=== PATIENT | male | born 1955 | race American Indian/Alaskan Native ===

== ENCOUNTER 2017-10-13 19:33 | Emergency (ER) | payer MEDICARE, OTHER ==
[2017-10-13 20:13] LABS: Hematocrit 40.3 % (35.5-45.6); Hemoglobin 13.3 gm/dl (11.8-15.2); Mean Corpuscular HGB Conc 33 % (32-34); Mean Corpuscular Hemoglobin 28 pg (28-32); Mean Corpuscular Volume 86 fl (84-94); Platelet Count 285 K/mm3 (140-440); Red Blood Count 4.71 M/mm3 (3.65-5.03); Red Cell Distribution Width 14.3 % (13.2-15.2)
[2017-10-13 20:16] LABS: INR 0.97 (0.87-1.13); Partial Thromboplastin Time 27.7 Sec. (24.2-36.6)
[2017-10-13 20:37] LABS: BUN/Creatinine Ratio 23; Blood Urea Nitrogen 21 mg/dL (9-20); Calcium 8.9 mg/dL (8.4-10.2); Hemolysis Index 11
[2017-10-13] MEDS ORDERED: AFRIN ONE (21:43)
[2017-10-13] MEDS ORDERED: AFRIN NS ONE (21:44)
--- NOTE | 2017-10-13 21:53 | Emergency Department Report ---
ED ENT HPI - General Chief complaint: Nosebleed Stated complaint: NOSE BLEED Time Seen by Provider: 10/13/17 21:44 Source: patient Mode of arrival: Ambulatory Limitations: No Limitations - History of Present Illness Initial comments: 62-year-old -Filipino male with a significant past medical history of hypertension, diabetes hypercholesterolemia and nasal surgery comes in today for complaint of nosebleed. Patient reports that the nose bleed started approximate 4:30 PM today. Patient denies any recent trauma to the nose but does report picking the nose. Patient reports that he often has nosebleed but this was told that he will continue to have nosebleed by his ear nose and throat doctor at [facility]. Patient reports that he had nasal surgery secondary to having a viral infection. Patient had a most of the nasal bone removed from the left nare. Patient denies any headache, dizziness, change in vision shortness of breath or chest pain. MD complaint: epistaxis -: This evening Time: 16:30 Location: nose Severity: severe Consistency: constant Improves with: none Worsens with: none Context-Epistaxis: recent surgery/procedure (proximally 8 years ago with nasal bone removal.), history of similar, other Associated Symptoms: denies: fever, cough, pain with swallowing, rhinorrhea - Related Data Home Medications Medication Instructions Recorded Confirmed Last Taken AtorvaSTATin [Lipitor] 80 mg PO QHS 04/24/15 04/24/15 04/23/15 Furosemide [Lasix] 20 mg PO QDAY 04/24/15 04/24/15 04/23/15 Insulin Aspart [NovoLOG Flexpen] 50 units SQ BID 04/24/15 04/24/15 04/23/15 Insulin Glargine,Hum.rec.anlog 45 units SQ QHS 04/24/15 04/24/15 04/23/15 [Lantus Solostar] Lisinopril [Zestril TAB] 40 mg PO QDAY 04/24/15 04/24/15 04/23/15 Magnesium Oxide 420 mg PO BID 04/24/15 04/24/15 04/23/15 Meclizine [Antivert] 12.5 mg PO DAILY 04/24/15 04/24/15 04/23/15 Metoprolol [Lopressor] 50 mg PO DAILY 04/24/15 04/24/15 04/23/15 Terazosin [Hytrin] 5 mg PO QHS 04/24/15 04/24/15 04/23/15 Allergies Allergy/AdvReac Type Severity Reaction Status Date / Time No Known Allergies Allergy Verified 10/13/17 21:45 ED Dental HPI - General Chief complaint: Nosebleed Stated complaint: NOSE BLEED Time Seen by Provider: 10/13/17 21:44 Source: patient Mode of arrival: Ambulatory Limitations: No Limitations - Related Data Home Medications Medication Instructions Recorded Confirmed Last Taken AtorvaSTATin [Lipitor] 80 mg PO QHS 04/24/15 04/24/15 04/23/15 Furosemide [Lasix] 20 mg PO QDAY 04/24/15 04/24/15 04/23/15 Insulin Aspart [NovoLOG Flexpen] 50 units SQ BID 04/24/15 04/24/15 04/23/15 Insulin Glargine,Hum.rec.anlog 45 units SQ QHS 04/24/15 04/24/15 04/23/15 [Lantus Solostar] Lisinopril [Zestril TAB] 40 mg PO QDAY 04/24/15 04/24/15 04/23/15 Magnesium Oxide 420 mg PO BID 04/24/15 04/24/15 04/23/15 Meclizine [Antivert] 12.5 mg PO DAILY 04/24/15 04/24/15 04/23/15 Metoprolol [Lopressor] 50 mg PO DAILY 04/24/15 04/24/15 04/23/15 Terazosin [Hytrin] 5 mg PO QHS 04/24/15 04/24/15 04/23/15 Allergies Allergy/AdvReac Type Severity Reaction Status Date / Time No Known Allergies Allergy Verified 10/13/17 21:45 ED Review of Systems ROS: Stated complaint: NOSE BLEED Other details as noted in HPI Comment: All other systems reviewed and negative ENT: epistaxis ED Past Medical Hx - Past Medical History Hx Hypertension: Yes Hx Diabetes: Yes Additional medical history: Vertigo - Surgical History Additional Surgical History: Facial surgery - Social History Smoking Status: Unknown if ever smoked Substance Use Type: None - Medications Home Medications: Home Medications Medication Instructions Recorded Confirmed Last Taken Type AtorvaSTATin [Lipitor] 80 mg PO QHS 04/24/15 04/24/15 04/23/15 History Furosemide [Lasix] 20 mg PO QDAY 04/24/15 04/24/15 04/23/15 History Insulin Aspart [NovoLOG Flexpen] 50 units SQ BID 04/24/15 04/24/15 04/23/15 History Insulin Glargine,Hum.rec.anlog 45 units SQ QHS 04/24/15 04/24/15 04/23/15 History [Lantus Solostar] Lisinopril [Zestril TAB] 40 mg PO QDAY 04/24/15 04/24/15 04/23/15 History Magnesium Oxide 420 mg PO BID 04/24/15 04/24/15 04/23/15 History Meclizine [Antivert] 12.5 mg PO DAILY 04/24/15 04/24/15 04/23/15 History Metoprolol [Lopressor] 50 mg PO DAILY 04/24/15 04/24/15 04/23/15 History Terazosin [Hytrin] 5 mg PO QHS 04/24/15 04/24/15 04/23/15 History ED Physical Exam - General Limitations: No Limitations - Head Head exam: Present: atraumatic, normocephalic - ENT ENT exam: Present: mucous membranes moist - Expanded ENT Exam Expanded Ear exam: Present: other (left knee are no turbinates removal of nasal bone to the left near. Active bleeding with oozing of blood tender to palpate is some deformity from prior surgery.) - Neck Neck exam: Present: normal inspection ED Course Vital Signs 10/13/17 19:44 Temperature 97.8 F Pulse Rate 62 Respiratory 18 Rate Blood Pressure 187/86 O2 Sat by Pulse 99 Oximetry - Reevaluation(s) Reevaluation #1: 10/13/17 23:01 Patient's nasal rocket is saturated with blood no longer oozing. Reevaluation #2: 10/13/17 23:05 No posterior bleeding in the oropharynx. No active bleeding at this time. ED Medical Decision Making - Lab Data Result diagrams: 10/13/17 19:54 10/13/17 19:54 - Medical Decision Making Patient has been evaluated by this provider fast track. I asked the M.Mindy from [facility] to come and evaluate patient for nose bleed. Dr. De Los Santos was able to put a nasal rocket into left nare.. Critical care attestation.: If time is entered above; I have spent that time in minutes in the direct care of this critically ill patient, excluding procedure time. ED Disposition Clinical Impression: Epistaxis Disposition: DC-01 TO HOME OR SELFCARE Is pt being admited?: No Does the pt Need Aspirin: No Condition: Stable Instructions: Epistaxis (ED) Additional Instructions: Please follow up in 24 hours to have nasal rocket removed. Please make an appointment to be seen by otolaryngology/ear nose and throat provider in the next 3-5 days. Referrals: KARTIK JENNINGS MD [Staff Physician] - 3-5 Days SARAI DENT MD [Staff Physician] - 3-5 Days BRITTANY BASURTO MD [Staff Physician] - 3-5 Days LEAH DACOSTA MD [Staff Physician] - 3-5 Days Forms: Work/School Release Form(ED), Accompanied Note
[2017-10-13] MEDS ORDERED: TYLENOL ONE (23:19)
[2017-10-13] MEDS ORDERED: TYLENOL PO ONE (23:20)
[2017-10-13 23:38] VITALS: BP 174/94
== END 2017-10-13 23:30 | disposition home or self-care (01) ==
LOC: ED 19:33
DX: R04.0 Epistaxis (principal); I10 Essential (primary) hypertension; E11.9 Type 2 diabetes mellitus without complications; Z79.4 Long term (current) use of insulin
CPT/HCPCS: 36415; 80048; 85027; 85610; 85730; 99283

== ENCOUNTER 2017-10-14 12:48 | Emergency (ER) | payer MEDICARE, OTHER ==
[2017-10-14 13:41] VITALS: BP 166/67
--- NOTE | 2017-10-14 16:37 | Emergency Department Report ---
ED General Adult HPI - General Chief complaint: Medical Clearance Stated complaint: REMOVE PACKING Time Seen by Provider: 10/14/17 15:48 Source: patient Mode of arrival: Ambulatory Limitations: No Limitations - History of Present Illness Initial comments: Patient presents to emergency department for removal of Rhino Rocket. Patient was in the emergency department last night had a Rhino Rocket placed. Patient is concerned that he still has bleeding and would like to have the Rhino Rocket change - Related Data Home Medications Medication Instructions Recorded Confirmed Last Taken AtorvaSTATin [Lipitor] 80 mg PO QHS 04/24/15 04/24/15 04/23/15 Furosemide [Lasix] 20 mg PO QDAY 04/24/15 04/24/15 04/23/15 Insulin Aspart [NovoLOG Flexpen] 50 units SQ BID 04/24/15 04/24/15 04/23/15 Insulin Glargine,Hum.rec.anlog 45 units SQ QHS 04/24/15 04/24/15 04/23/15 [Lantus Solostar] Lisinopril [Zestril TAB] 40 mg PO QDAY 04/24/15 04/24/15 04/23/15 Magnesium Oxide 420 mg PO BID 04/24/15 04/24/15 04/23/15 Meclizine [Antivert] 12.5 mg PO DAILY 04/24/15 04/24/15 04/23/15 Metoprolol [Lopressor] 50 mg PO DAILY 04/24/15 04/24/15 04/23/15 Terazosin [Hytrin] 5 mg PO QHS 04/24/15 04/24/15 04/23/15 Previous Rx's Medication Instructions Recorded Last Taken Type Cephalexin [Keflex] 250 mg PO Q6HR #20 capsule 10/14/17 Unknown Rx Allergies Allergy/AdvReac Type Severity Reaction Status Date / Time No Known Allergies Allergy Verified 10/14/17 13:37 ED Review of Systems ROS: Stated complaint: REMOVE PACKING Other details as noted in HPI Constitutional: denies: chills, fever Eyes: denies: eye pain, eye discharge, vision change ENT: epistaxis. denies: ear pain, throat pain Respiratory: denies: cough, shortness of breath, wheezing Cardiovascular: denies: chest pain, palpitations Endocrine: no symptoms reported Gastrointestinal: denies: abdominal pain, nausea, diarrhea Genitourinary: denies: urgency, dysuria Musculoskeletal: denies: back pain, joint swelling, arthralgia Skin: denies: rash, lesions Neurological: denies: headache, weakness, paresthesias Psychiatric: denies: anxiety, depression Hematological/Lymphatic: denies: easy bleeding, easy bruising ED Past Medical Hx - Past Medical History Hx Hypertension: Yes Hx Diabetes: Yes Additional medical history: Vertigo - Surgical History Additional Surgical History: Facial surgery - Social History Smoking Status: Current Every Day Smoker Substance Use Type: None - Medications Home Medications: Home Medications Medication Instructions Recorded Confirmed Last Taken Type AtorvaSTATin [Lipitor] 80 mg PO QHS 04/24/15 04/24/15 04/23/15 History Furosemide [Lasix] 20 mg PO QDAY 04/24/15 04/24/15 04/23/15 History Insulin Aspart [NovoLOG Flexpen] 50 units SQ BID 04/24/15 04/24/15 04/23/15 History Insulin Glargine,Hum.rec.anlog 45 units SQ QHS 04/24/15 04/24/15 04/23/15 History [Lantus Solostar] Lisinopril [Zestril TAB] 40 mg PO QDAY 04/24/15 04/24/15 04/23/15 History Magnesium Oxide 420 mg PO BID 04/24/15 04/24/15 04/23/15 History Meclizine [Antivert] 12.5 mg PO DAILY 04/24/15 04/24/15 04/23/15 History Metoprolol [Lopressor] 50 mg PO DAILY 04/24/15 04/24/15 04/23/15 History Terazosin [Hytrin] 5 mg PO QHS 04/24/15 04/24/15 04/23/15 History Cephalexin [Keflex] 250 mg PO Q6HR #20 capsule 10/14/17 Unknown Rx ED Physical Exam - General Limitations: No Limitations General appearance: alert, in no apparent distress - Head Head exam: Present: atraumatic, normocephalic - Eye Eye exam: Present: normal appearance - ENT ENT exam: Present: mucous membranes moist, other (mild anterior nasal bleed) - Neck Neck exam: Present: normal inspection - Respiratory Respiratory exam: Present: normal lung sounds bilaterally. Absent: respiratory distress - Cardiovascular Cardiovascular Exam: Present: regular rate, normal rhythm. Absent: systolic murmur, diastolic murmur, rubs, gallop - GI/Abdominal GI/Abdominal exam: Present: soft, normal bowel sounds - Rectal Rectal exam: Present: deferred - Extremities Exam Extremities exam: Present: normal inspection - Back Exam Back exam: Present: normal inspection - Neurological Exam Neurological exam: Present: alert, oriented X3 - Psychiatric Psychiatric exam: Present: normal affect, normal mood - Skin Skin exam: Present: warm, dry, intact, normal color. Absent: rash ED Course Vital Signs 10/14/17 13:38 Temperature 98.7 F Pulse Rate 47 L Respiratory 18 Rate Blood Pressure 166/67 O2 Sat by Pulse 98 Oximetry ED Medical Decision Making - Medical Decision Making Procedure note Rhino Rocket was placed into the left nasal nare without any complications. Patient tolerated the procedure well patient also gave consent for procedure. Tolerated procedure well Patient will follow with ENT Critical care attestation.: If time is entered above; I have spent that time in minutes in the direct care of this critically ill patient, excluding procedure time. ED Disposition Clinical Impression: Epistaxis Disposition: DC-01 TO HOME OR SELFCARE Is pt being admited?: No Does the pt Need Aspirin: No Condition: Stable Instructions: Epistaxis (ED) Additional Instructions: Return if symptoms become worse Prescriptions: Cephalexin [Keflex] 250 mg PO Q6HR #20 capsule Referrals: PRIMARY CARE, [Primary Care Provider] - 3-5 Days BRITTANY BASURTO MD [Staff Physician] - 3-5 Days Time of Disposition: 16:34
== END 2017-10-14 16:40 | disposition home or self-care (01) ==
LOC: ED 12:48
DX: Z46.89 Encounter for fitting and adjustment of other specified devices (principal); R04.0 Epistaxis; E11.9 Type 2 diabetes mellitus without complications; I10 Essential (primary) hypertension; F17.200 Nicotine dependence, unspecified, uncomplicated; Z79.899 Other long term (current) drug therapy
CPT/HCPCS: 99282

== ENCOUNTER 2018-06-27 03:46 | Emergency (ER) | payer MEDICARE ==
[2018-06-27 04:22] LABS: Basophils # (Auto) 0.1 K/mm3 (0.0-0.1); Basophils % (Auto) 0.9 % (0.0-1.8); Eosinophils # (Auto) 0.2 K/mm3 (0.0-0.4); Hematocrit 39.8 % (35.5-45.6); Hemoglobin 13.3 gm/dl (11.8-15.2); Lymphocytes # (Auto) 3.2 K/mm3 (1.2-5.4); Lymphocytes % (Auto) 39.9 % (13.4-35.0); Mean Corpuscular HGB Conc 33 % (32-34); Mean Corpuscular Volume 85 fl (84-94); Monocytes # (Auto) 0.5 K/mm3 (0.0-0.8); Platelet Count 311 K/mm3 (140-440); Red Blood Count 4.71 M/mm3 (3.65-5.03); Red Cell Distribution Width 13.7 % (13.2-15.2)
[2018-06-27 04:33] LABS: BUN/Creatinine Ratio 17; Blood Urea Nitrogen 15 mg/dL (9-20); Calcium 9.4 mg/dL (8.4-10.2); Hemolysis Index 5; INR 0.98 (0.87-1.13)
[2018-06-27] MEDS ORDERED: VICKS SINEX ONE ×2 (04:36→05:31)
--- NOTE | 2018-06-27 04:38 | Emergency Department Report ---
ED ENT HPI - General Chief complaint: Nosebleed Stated complaint: NOSE BLEED Time Seen by Provider: 06/27/18 04:33 Source: patient Mode of arrival: Ambulatory Limitations: No Limitations - History of Present Illness Initial comments: 60 male presents to ED with nosebleed. Patient has been having intermittent bleeding from left nostril 6 days. States bleeding worsened tonight, used Afrin prior to ED arrival. complaint: epistaxis -: days(s) (6) Location: nose Severity: moderate Consistency: intermittent Improves with: pressure Worsens with: none Context-Epistaxis: history of similar Associated Symptoms: denies: fever - Related Data Home Medications Medication Instructions Recorded Confirmed Last Taken Lisinopril [Zestril TAB] 40 mg PO QDAY 04/24/15 03/31/18 04/23/15 Meclizine [Antivert] 12.5 mg PO BID 04/24/15 03/31/18 04/23/15 Aspirin [Adult Aspirin] 81 mg PO DAILY 03/31/18 03/31/18 Unknown Furosemide [Lasix] 80 mg PO QDAY 03/31/18 03/31/18 Unknown Gabapentin [Neurontin] 100 mg PO TID 03/31/18 03/31/18 Unknown Insulin Detemir [Levemir Flextouch] 50 units SUB-Q DAILY 03/31/18 03/31/18 Unknown Metoprolol [Lopressor TAB] 50 mg PO BID 03/31/18 03/31/18 Unknown Terazosin HCl 20 mg PO QDAY 03/31/18 03/31/18 Unknown Previous Rx's Medication Instructions Recorded Last Taken Type Famotidine [Pepcid] 20 mg PO BID #30 tablet 04/03/18 Unknown Rx Potassium Chloride 20 meq PO DAILY #30 tablet.er 04/03/18 Unknown Rx hydrALAZINE [Apresoline TAB] 25 mg PO Q8HR #90 tablet 04/03/18 Unknown Rx Amoxicillin/K Clav Tab [Augmentin 1 tab PO Q12HR #10 tab 06/27/18 Unknown Rx 875 mg] Allergies Allergy/AdvReac Type Severity Reaction Status Date / Time No Known Allergies Allergy Verified 03/31/18 09:40 ED Dental HPI - General Chief complaint: Nosebleed Stated complaint: NOSE BLEED Time Seen by Provider: 06/27/18 04:33 Source: patient Mode of arrival: Ambulatory Limitations: No Limitations - Related Data Home Medications Medication Instructions Recorded Confirmed Last Taken Lisinopril [Zestril TAB] 40 mg PO QDAY 04/24/15 03/31/18 04/23/15 Meclizine [Antivert] 12.5 mg PO BID 04/24/15 03/31/18 04/23/15 Aspirin [Adult Aspirin] 81 mg PO DAILY 03/31/18 03/31/18 Unknown Furosemide [Lasix] 80 mg PO QDAY 03/31/18 03/31/18 Unknown Gabapentin [Neurontin] 100 mg PO TID 03/31/18 03/31/18 Unknown Insulin Detemir [Levemir Flextouch] 50 units SUB-Q DAILY 03/31/18 03/31/18 Unknown Metoprolol [Lopressor TAB] 50 mg PO BID 03/31/18 03/31/18 Unknown Terazosin HCl 20 mg PO QDAY 03/31/18 03/31/18 Unknown Previous Rx's Medication Instructions Recorded Last Taken Type Famotidine [Pepcid] 20 mg PO BID #30 tablet 04/03/18 Unknown Rx Potassium Chloride 20 meq PO DAILY #30 tablet.er 04/03/18 Unknown Rx hydrALAZINE [Apresoline TAB] 25 mg PO Q8HR #90 tablet 04/03/18 Unknown Rx Amoxicillin/K Clav Tab [Augmentin 1 tab PO Q12HR #10 tab 06/27/18 Unknown Rx 875 mg] Allergies Allergy/AdvReac Type Severity Reaction Status Date / Time No Known Allergies Allergy Verified 03/31/18 09:40 ED Review of Systems ROS: Stated complaint: NOSE BLEED Other details as noted in HPI Comment: All other systems reviewed and negative ENT: epistaxis ED Past Medical Hx - Past Medical History Hx Hypertension: Yes Hx Congestive Heart Failure: No Hx Diabetes: Yes Hx Arthritis: Yes Hx Asthma: Yes Hx COPD: No Hx HIV: No Additional medical history: Vertigo, Heart Disease - Surgical History Additional Surgical History: Facial surgery I believe for mucormycosis infection - Social History Smoking Status: Former Smoker Substance Use Type: None - Medications Home Medications: Home Medications Medication Instructions Recorded Confirmed Last Taken Type Lisinopril [Zestril TAB] 40 mg PO QDAY 04/24/15 03/31/18 04/23/15 History Meclizine [Antivert] 12.5 mg PO BID 04/24/15 03/31/18 04/23/15 History Aspirin [Adult Aspirin] 81 mg PO DAILY 03/31/18 03/31/18 Unknown History Furosemide [Lasix] 80 mg PO QDAY 03/31/18 03/31/18 Unknown History Gabapentin [Neurontin] 100 mg PO TID 03/31/18 03/31/18 Unknown History Insulin Detemir [Levemir Flextouch] 50 units SUB-Q DAILY 03/31/18 03/31/18 Unknown History Metoprolol [Lopressor TAB] 50 mg PO BID 03/31/18 03/31/18 Unknown History Terazosin HCl 20 mg PO QDAY 03/31/18 03/31/18 Unknown History Famotidine [Pepcid] 20 mg PO BID #30 tablet 04/03/18 Unknown Rx Potassium Chloride 20 meq PO DAILY #30 tablet.er 04/03/18 Unknown Rx hydrALAZINE [Apresoline TAB] 25 mg PO Q8HR #90 tablet 04/03/18 Unknown Rx Amoxicillin/K Clav Tab [Augmentin 1 tab PO Q12HR #10 tab 06/27/18 Unknown Rx 875 mg] ED Physical Exam - General Limitations: No Limitations General appearance: alert, in no apparent distress - Head Head exam: Present: atraumatic, normocephalic - Eye Eye exam: Present: normal appearance - ENT ENT exam: Present: other (deformity of left nare due to partial resection of it; minimal active bleeding fro left nare) - Neck Neck exam: Present: normal inspection - Respiratory Respiratory exam: Present: normal lung sounds bilaterally. Absent: respiratory distress - Cardiovascular Cardiovascular Exam: Present: normal rhythm, bradycardia - GI/Abdominal GI/Abdominal exam: Present: soft. Absent: distended - Extremities Exam Extremities exam: Present: normal inspection - Neurological Exam Neurological exam: Present: alert, oriented X3 - Psychiatric Psychiatric exam: Present: normal affect, normal mood - Skin Skin exam: Present: warm, dry, intact, normal color. Absent: rash ED Course Vital Signs 06/27/18 03:52 Temperature 98.1 F Pulse Rate 48 L Respiratory 20 Rate Blood Pressure 190/75 O2 Sat by Pulse 97 Oximetry ED Medical Decision Making - Lab Data Result diagrams: 06/27/18 04:01 06/27/18 04:01 - Medical Decision Making Rhinorocket placed in left nare. No complications. Bleeding controlled. Patient advised to f/u with ENT. Will d/c w/ rx for augmentin. - Differential Diagnosis epistaxis Critical care attestation.: If time is entered above; I have spent that time in minutes in the direct care of this critically ill patient, excluding procedure time. ED Disposition Clinical Impression: Epistaxis Disposition: - TO HOME OR SELFCARE Is pt being admited?: No Condition: Stable Instructions: Epistaxis (ED) Prescriptions: Amoxicillin/K Clav Tab [Augmentin 875 mg] 1 tab PO Q12HR #10 tab Referrals: BRITTANY BASURTO MD [Staff Physician] - 3-5 Days RACHANA CORTÉS MD [Staff Physician] - 3-5 Days KARTIK JENNINGS MD [Staff Physician] - 3-5 Days LEAH DACOSTA MD [Staff Physician] - 3-5 Days
[2018-06-27 05:39] VITALS: BP 167/71
== END 2018-06-27 05:53 | disposition home or self-care (01) ==
LOC: ED 03:46
DX: R04.0 Epistaxis (principal); I10 Essential (primary) hypertension; E11.9 Type 2 diabetes mellitus without complications; M19.90 Unspecified osteoarthritis, unspecified site; J45.909 Unspecified asthma, uncomplicated; Z87.891 Personal history of nicotine dependence
CPT/HCPCS: 36415; 80048; 85025; 85610; 85730